=== PATIENT | male | born 1955 | race Caucasian/White ===

== ENCOUNTER 2022-06-17 15:32 | Emergency (ER) | payer MEDICARE, SELFPAY ==
--- NOTE | 2022-06-17 15:36 | ED.SKABFB ---
HPI - Skin/Abscess/Foreign Bdy General Chief complaint: Skin/Abscess/Foreign Body Stated complaint: Rash Time Seen by Provider: 06/17/22 15:36 Source: patient and RN notes reviewed History of Present Illness HPI narrative: Patient is 67-year-old male who presents the urgent care with complaints of painful itchy rash to the right chest. Patient states that he noticed it on Wednesday morning and has since spread to the midline. Patient has not been taking anything [id number] for his symptoms. No other acute complaints. Patient does not have a history of shingles and has not been vaccinated for shingles. No acute distress noted. Patient aware of the plan of care. Some parts of this dictation were generated by voice recognition software and may contain typographical and/or grammatical inaccuracies. Related Data Allergies Allergy/AdvReac Type Severity Reaction Status Date / Time No Known Allergies Allergy Mild Verified 06/17/22 15:45 Review of Systems Review of Systems: CONSTITUTIONAL: Denies fever, chills, or sweats. EYES: Denies visual changes, redness, or discharge. ENT: Denies rhinorrhea, congestion, sore throat, or otalgia. CARDIOVASCULAR: Denies chest pain, palpitations, or edema. RESPIRATORY: Denies cough or dyspnea. GASTROINTESTINAL: Denies abdominal pain, nausea, vomiting, or diarrhea. GENITOURINARY: Denies dysuria or hematuria. SKIN: Reports a blistery itchy painful rash to the right chest MUSCULOSKELETAL: Denies back pain, joint pain, or myalgia. NEUROLOGIC: Denies headache, numbness, or weakness. All other systems reviewed are negative, except as documented in HPI. [facility] Family History Family History (Updated 12/18/16 @ 23:56 by DOCTOR UNKNOWN) Sibling Hypertension Family history of elevated blood lipids Family history of diabetes mellitus in first degree relative Family history of malignant melanoma Father Family history of diabetes mellitus in first degree relative, Onset Age: 62 Patient's father is Mother Family history of malignant neoplasm of breast in first degree relative, Onset Age: 52 Family history of congestive heart failure Patient's mother is Social History Social History Smoking status: Current every day smoker Alcohol intake: current Comments At the time of my signature, I reviewed and agree with the nursing past medical, surgical, social, and family history. There is no relevant family history pertinent to the patient complaint. Exam Narrative: GENERAL: This is a well-nourished, well-developed patient, in no apparent distress. HEAD: normocephalic, atraumatic. EYES: PERRL. Sclera clear/white. Vision is grossly intact. EARS: External ears normal NOSE: External nose normal with no obvious nasal discharge, nares without redness, no rhinorrhea. THROAT: Mucous membranes moist SKIN: vesicular shingles rash to the right chest extending towards the back, [id number] NEURO: awake, alert, and oriented to person, place and time. There were no obvious focal neurologic abnormalities. EXTREMITIES: No clubbing, cyanosis, or edema. Course Course Level of Care: Express Care Visit Vital Signs Vital signs: Vital Signs Temperature 97.2 F L 06/17/22 15:44 Pulse Rate 86 06/17/22 15:44 Respiratory Rate 18 06/17/22 15:44 Blood Pressure 182/95 H 06/17/22 15:44 Pulse Oximetry 100 06/17/22 15:44 Oxygen Delivery Room Air 06/17/22 15:44 Temperature 97.2 F L 06/17/22 15:44 Pulse Rate 86 06/17/22 15:44 Respiratory Rate 18 06/17/22 15:44 Blood Pressure 182/95 H 06/17/22 15:44 Pulse Oximetry 100 06/17/22 15:44 Oxygen Delivery Room Air 06/17/22 15:44 Reviewed-patient is informed that they may have pre-hypertension or hypertension based on a blood pressure reading in the department. I recommend the patient call the primary care provider listed on their discharge instructions or a physician of their choice this week
[2022-06-17 15:44] VITALS: BP 182/95; PULSE 86; RESP 18; TEMP 36.2; O2SAT 100
== END 2022-06-17 16:00 | disposition home or self-care (01) ==
PROVIDERS: Emergency Provider Nurse Practitioner Family
DX: B02.9 Zoster without complications (principal); F17.200 Nicotine dependence, unspecified, uncomplicated
CPT/HCPCS: 99213; G0463